=== PATIENT | male | born 1935 | race Caucasian/White ===

== ENCOUNTER 2020-07-25 11:27 | Outpatient (REF) | payer MEDICARE, SELFPAY ==
[2020-07-25 13:19] LABS: Vitamin B12 796 pg/mL (200-900)
== END 2020-07-25 11:28 | disposition home or self-care (01) ==
LOC: HO.LAB 11:27
PROVIDERS: PCP Physician Assistant; Visit Provider Psychiatry & Neurology Neurology
DX: G30.9 Alzheimer's disease, unspecified (principal)
CPT/HCPCS: 82607